=== PATIENT | male | born 1995 | race Caucasian/White ===

== ENCOUNTER 2017-11-22 03:58 | Emergency (ER) | payer OTHER ==
[~2017-11-22] VITALS: Ht 175.3 cm; Wt 79.4 kg
[~2017-11-22 03:58] MED LIST: UNICOMPLEX M TA1 TA1 PO
[2017-11-22] MEDS ORDERED: VISTARIL 25 MG25 M1 (04:21)
[2017-11-22] MEDS ORDERED: CELEXA10 MG (04:21)
[2017-11-22 04:56] VITALS: BP 133/78
--- NOTE | 2017-11-22 12:29 | EKG ---
[place] [address] ELECTROCARDIOGRAM REPORT Name: MELISSAERNIENickGIACOMOJUAN ANTONIOLEROY SHAYO [id number] Admission: 11/22/17 Attend Phys: Discharge: 11/22/17 Date of : [birth year] Report #: [id number] THIS REPORT FOR: //name// [facility] ED Test Date: 2017-11-22 Test Time: 04:26:09 Pat Name: JUAN ANTONIO [place] Department: Room: Gender: M Varitype Operator: : 1995 Requested By: Nadia Rivas Order Number: [id number] MD: Cash Adhikari Measurements Intervals [place] Rate: 78 P: -2 OK: 117 QRS: 64 QRSD: 97 T: 17 QT: 359 QTc: 409 Interpretive Statements Sinus arrhythmia Borderline short OK interval Compared to ECG 07/26/2017 02:19:15 Sinus tachycardia no longer present Electronically Signed On 11-22-2017 12:28:49 DINING ROOM COORDINATOR by Cash Adhikari [email or web address] <ELECTRONICALLY SIGNED> By: Cash Adhikari MD, [facility] 11/22/17 1228 042 5 Cash Adhikari MD, FACC /EPI
== END 2017-11-22 04:57 | disposition home or self-care (01) ==
LOC: M.ERS 03:58
DX: F41.9 Anxiety disorder, unspecified (principal); F17.210 Nicotine dependence, cigarettes, uncomplicated